=== PATIENT | female | born 1985 | race Caucasian/White ===

== ENCOUNTER → 2021-10-14 | Outpatient (CLI) | payer BC ==
[2021-10-14 09:54] LABS: HEMATOCRIT 41.2 % (37.0-47.0); HEMOGLOBIN 13.3 g/dL (12.5-16.0); MEAN PLATELET VOLUME 9.9 fl (7.4-10.4); RED BLOOD COUNT 4.58 M/mm3 (4.10-5.30); RED CELL DISTRIBUTION WIDTH 13.1 % (11.5-14.5); WHITE BLOOD COUNT 8.5 K/mm3 (4.8-10.8)
[2021-10-14 09:57] LABS: ALBUMIN 3.9 g/dL (3.5-5.0); POTASSIUM 4.8 mmol/L (3.5-5.1)
[2021-10-14 09:59] LABS: CALCIUM 9.5 mg/dL (8.3-10.5)
[2021-10-14 10:00] LABS: TOTAL PROTEIN 6.8 g/dL (6.4-8.3)
[2021-10-14 10:02] LABS: TOTAL BILIRUBIN 0.5 mg/dL (0.2-1.2)
== END ==
LOC: RAD 09:14 → LAB 09:14
PROVIDERS: Nurse Practitioner Primary Care
DX: R10.11 Right upper quadrant pain (principal)

== ENCOUNTER → 2022-01-25 | Outpatient (CLI) | payer BC | LOC: RAD 16:54 | DX: M25.561 Pain in right knee (principal); M25.562 Pain in left knee; W19.XXXA Unspecified fall, initial encounter ==